=== PATIENT | male | born 1955 | race Caucasian/White ===

== ENCOUNTER 2017-05-31 03:15 | Emergency (ER) | payer OTHER ==
[~2017-05-31] VITALS: Ht 180.3 cm; Wt 95.0 kg
[~2017-05-31 03:15] MED LIST: 1-ME1LIQ PO; ASPI325T PO; CIAL5TAB PO; CLON0.3T PO; GLUCTAB PO; LISI-363 PO; METO50TA PO; PRAV40TA2 PO
[2017-05-31 03:20] VITALS: BP 217/125; PULSE 102; RESP 20; TEMP 97.8; O2SAT 99
[2017-05-31] MEDS ORDERED: ACETAMINOPHEN/HYDROcodone 325 MG/5 MG TAB PO ONE (03:45)
--- NOTE | 2017-05-31 04:25 | RADRPT ---
EXAM DATE/TIME: 05/31/2017 03:54 [place] COMPARISON: No previous studies available for comparison. INDICATIONS : Patient complains of pain and inflammation at 1st MTPJ. MEDICAL HISTORY : Diabetes mellitus type II. SURGICAL HISTORY : None. ENCOUNTER: Initial ACUITY: 4 - 6 days PAIN SCORE: 9/10 LOCATION: Left Foot FINDINGS: Mild to moderate joint space narrowing with small marginal osteophytes are seen at the first metatars ophalangeal and sesamoids. Mild periarticular soft tissue swelling noted. I don't see any erosions. No fractures or subluxations. Incidentally seen type I accessory navicular. CONCLUSION: Arthropathy of the first metatarsophalangeal joint is nonspecific but most typical of osteoarthritis. There is nonspecific periarticular soft tissue swelling. No erosive changes or evidence of bone dest ruction. Clifford Mai MD on May 31, 2017 at 4:22 Board Certified Radiologist. This report was verified electronically.
[2017-05-31 04:41] VITALS: BP 169/97; PULSE 93; RESP 20; O2SAT 99
[2017-05-31] MEDS ORDERED: HYDR-3516 PO (04:42)
[2017-05-31] MEDS ORDERED: BACT800T5 PO (04:45)
--- NOTE | 2017-05-31 04:45 | PD ---
HPI Chief Complaint: Edema Time Seen by Provider: 03:27 Travel History International Travel<30 days: No Contact w/Intl Traveler<30days: No Traveled to known affect area: No History of Present Illness HPI 62-year-old male one day of pain in the right great toe. Onset gradual. Timing constant. The pain is severe and worse with palpation or range of motion. No similar prior history. No trauma. No fever. Associated symptoms include erythema PFSH Past Medical History COPD: Yes Diabetes: Yes Patient Takes Glucophage: Yes Hypertension: Yes Immunizations Current: Yes Tetanus Vaccination: Unknown Influenza Vaccination: No Social History Alcohol Use: No Tobacco Use: Yes Substance Use: No Allergies-Medications (Allergen,Severity, Reaction): Coded Allergies: No Known Allergies (Unverified , 04/13/13) Reported Meds & Prescriptions Reported Meds & Active Scripts Active Review of Systems Except as stated in HPI: all other systems reviewed are Neg Physical Exam Narrative GENERAL: 62-year-old male well-nourished well-developed mild distress secondary to pain. Vital Signs Date Time Temp Pulse Resp B/P (MAP) Pulse Ox O2 Delivery O2 Flow Rate FiO2 05/31/17 03:20 97.8 102 20 217/125 (155) 99 SKIN: Warm and dry. HEAD: Atraumatic. Normocephalic. EYES: Pupils equal and round. No scleral icterus. No injection or drainage. ENT: No nasal bleeding or discharge. Mucous membranes pink and moist. NECK: Trachea midline. No JVD. CARDIOVASCULAR: Regular rate and rhythm. RESPIRATORY: No accessory muscle use. Clear to auscultation. Breath sounds equal bilaterally. GASTROINTESTINAL: Abdomen soft, non-tender, nondistended. Hepatic and splenic margins not palpable. MUSCULOSKELETAL: Extremities without clubbing, cyanosis, or edema. No obvious deformities. Minimal erythema about the right great toe with appropriate tenderness. Minimal warmth. Minimal swelling. NEUROLOGICAL: Awake and alert. No obvious cranial nerve deficits. Motor grossly within normal limits. Five out of 5 muscle strength in the arms and legs. Normal speech. PSYCHIATRIC: Appropriate mood and affect; insight and judgment normal. Data Data Last Documented VS Vital Signs Date Time Temp Pulse Resp B/P (MAP) Pulse Ox O2 Delivery O2 Flow Rate FiO2 05/31/17 03:20 97.8 102 20 217/125 (155) 99 Orders Orders Acetamin-Hydrocod 325-5 Mg ([place] 5-325 (05/31/17 03:45) Foot, Complete ([id number]) (05/31/17 ) MDM Medical Decision Making Medical Screen Exam Complete: Yes Emergency Medical Condition: Yes Medical Record Reviewed: Yes Differential Diagnosis Gout, osteoarthritis, cellulitis Narrative Course Last Impressions Foot X-Ray 05/31/17 0000 Signed Impressions: Service Date/Time: Wednesday, May 31, 2017 03:54 - CONCLUSION: Arthropathy of the first metatarsophalangeal joint is nonspecific but most typical of osteoarthritis. There is nonspecific periarticular soft tissue swelling. No erosive changes or evidence of bone destruction. Clifford Mai MD 164/90 was repeat blood pressure Pain control Potentially there is an element of cellulitis has received warmth and erythema without gout change Diagnosis Primary Impression: Osteoarthritis Qualified Codes: M19.071 - Primary osteoarthritis, right ankle and foot Referrals: Mike Dunham DPM 2 days Med/Other Pt SpecificInfo: Prescription(s) given Scripts Sulfamethoxazole-Trimethoprim (Bactrim DS) 800-160 Mg Tab 1 TAB PO BID for Infection, #14 TAB 0 Refills Prov: Fransico Benavides MD 05/31/17 Hydrocodone-Acetaminophen (Hydrocodone-Acetaminophen) 5-325 mg Tab 1 TAB PO Q6H Y for PAIN SCALE 6 TO 10, #12 TAB 0 Refills Prov: Fransico Benavides MD 05/31/17 Disposition: 01 DISCHARGE HOME Condition: Stable Fransico Benavieds MD May 31, 2017 04:45
== END 2017-05-31 06:38 | disposition home or self-care (01) ==
LOC: NEPE 03:15
DX: M19.071 Primary osteoarthritis, right ankle and foot (principal); J44.9 Chronic obstructive pulmonary disease, unspecified; E11.9 Type 2 diabetes mellitus without complications; I10 Essential (primary) hypertension; Z72.0 Tobacco use
CPT/HCPCS: 73630; 99283